=== PATIENT | male | born 1945 | race Caucasian/White ===

== ENCOUNTER 2018-09-11 15:28 | Outpatient (REF) | payer MEDICARE, OTHER, SELFPAY ==
[2018-09-13 10:31] LABS: PSA, Screening 0.3 ng/ml (0-6.5)
== END 2018-09-11 15:48 ==
LOC: NCHCN 15:28
PROVIDERS: PCP Family Medicine; Visit Provider Family Medicine
DX: N40.0 Benign prostatic hyperplasia without lower urinary tract symptoms (principal); Z12.5 Encounter for screening for malignant neoplasm of prostate
CPT/HCPCS: 84153

== ENCOUNTER 2020-08-26 09:01 | Outpatient (REF) | payer OTHER, SELFPAY ==
[2020-08-26 13:34] LABS: HCT 41.2 % (40.0-50.0); HGB 13.5 g/dL (13.5-17.5); MCH 30.7 pg (27.0-33.0); MCHC 32.8 % (32.0-36.0); MCV 93.6 fL (80-95); MPV 8.5 fL (8.0-11.0); Platelet Count 257 10^3/uL (130-400); RDW 12.8 % (11.8-14.1); RDW-SD 44.2 fL; WBC 5.36 10^3/uL (4.4-10.8)
[2020-08-26 13:56] LABS: ALT 20 U/L (16-63); AST 18 U/L (15-37); Albumin 3.9 g/dL (3.4-5.0); Alkaline Phosphatase 65 U/L (46-116); Anion Gap 8.1 mmol/L (3-11); BUN 23 mg/dL (7-18); Bilirubin, Total 0.6 mg/dL (0.2-1.0); CO2 27.9 mmol/L (21.0-32.0); CREATININE 0.9 mg/dL (0.70-1.30); Calculated LDL 109 mg/dL (<100); Chloride 103 mmol/L (98-107); Cholesterol 179 mg/dL (<200); Glucose 85 mg/dL (74-106); HDL Cholesterol 56 mg/dL (40-60); Potassium 4.8 mmol/L (3.5-5.1); Sodium 139 mmol/L (136-145); Total Protein 7.1 g/dL (6.4-8.2); Triglyceride 73 mg/dL (<150)
== END 2020-08-26 09:02 | disposition home or self-care (01) ==
LOC: NCHCN 09:01
PROVIDERS: PCP Family Medicine; Visit Provider Family Medicine
DX: E66.9 Obesity, unspecified (principal)
CPT/HCPCS: 80053; 80061; 85027

== ENCOUNTER 2021-06-14 09:02 | Outpatient (REF) | payer MEDICARE, SELFPAY ==
[2021-06-13 21:00] LABS: Abs Immature Grans 0.02 10^3/uL (0.0-0.06); Absolute Basophil Count 0.02 10^3/uL (0.0-0.2); Absolute Eosinophil Count 0.07 10^3/uL (0.0-0.7); Absolute Lymphocyte Count 1.88 10^3/uL (1.2-3.4); Absolute Neutrophil Count 3.94 10^3/uL (1.2-6.7); Basophils % 0.3; Eosinophils % 1.1; HCT 42.5 % (40.0-50.0); Immature Grans % 0.3; Lymphocytes % 29.2; MCH 30.1 pg (27.0-33.0); MCHC 32.9 % (32.0-36.0); MCV 91.4 fL (80-95); MPV 8.6 fL (8.0-11.0); Monocytes % 7.8; Neutrophils % 61.3; Nucleated RBC 0 %; Platelet Count 255 10^3/uL (130-400); RBC 4.65 10^6/uL (4.36-5.78); RDW 12.2 % (11.8-14.1); WBC 6.43 10^3/uL (4.4-10.8)
[2021-06-13 21:05] LABS: Amylase 41 U/L (25-115); Lipase 48 U/L (73-393)
== END 2021-06-14 09:03 | disposition home or self-care (01) ==
LOC: NCHCN 09:02
PROVIDERS: PCP Family Medicine; Visit Provider Family Medicine
DX: R10.13 Epigastric pain (principal)
CPT/HCPCS: 83690; 82150; 85025

== ENCOUNTER → 2022-09-07 09:35 | Outpatient (BNVA) | payer MEDICARE, SELFPAY | PROVIDERS: PCP Family Medicine; Referring Provider Family Medicine; Visit Provider Physical Therapy Assistant | DX: Z12.11 Encounter for screening for malignant neoplasm of colon (principal); Z86.010 Personal history of colon polyps; Z80.0 Family history of malignant neoplasm of digestive organs ==

== ENCOUNTER 2022-09-27 10:02 | Outpatient (REF) | payer MEDICARE, SELFPAY ==
[2022-09-27 14:57] LABS: HCT 42.5 % (40.0-50.0); HGB 13.8 g/dL (13.5-17.5); MCH 30.5 pg (27.0-33.0); MCHC 32.5 % (32.0-36.0); MCV 94 fL (80-95); MPV 8.4 fL (8.0-11.0); Platelet Count 288 10^3/uL (130-400); RBC 4.53 10^6/uL (4.36-5.78); RDW 12.9 % (11.8-14.1); RDW-SD 44.6 fL; WBC 6.19 10^3/uL (4.4-10.8)
[2022-09-27 15:59] LABS: ALT 19 U/L (16-63); AST 24 U/L (15-37); Albumin 4.1 g/dL (3.4-5.0); Alkaline Phosphatase 79 U/L (46-116); Anion Gap 8.3 mmol/L (3-11); BUN 27 mg/dL (7-18); Bilirubin, Total 0.6 mg/dL (0.2-1.0); CO2 28.7 mmol/L (21.0-32.0); Calcium 9.3 mg/dL (8.5-10.1); Calculated LDL 123 mg/dL (<100); Chloride 104 mmol/L (98-107); Cholesterol 196 mg/dL (<200); Estimated GFR 78.49 (mL/min/1.73m2); Glucose 102 mg/dL (74-106); HDL Cholesterol 61 mg/dL (40-60); Potassium 4.7 mmol/L (3.5-5.1); Sodium 141 mmol/L (136-145); Total Protein 7.4 g/dL (6.4-8.2); Triglyceride 61 mg/dL (<150)
[2022-09-27 16:00] LABS: Vitamin D 25 Total 44.1 ng/mL (30-100)
[2022-09-27 22:42] LABS: PSA, Screening 0.2 ng/mL (<=6.5)
== END 2022-09-27 10:03 | disposition home or self-care (01) ==
LOC: NCHCN 10:02
PROVIDERS: PCP Family Medicine; Visit Provider Family Medicine
DX: N40.0 Benign prostatic hyperplasia without lower urinary tract symptoms (principal); Z12.5 Encounter for screening for malignant neoplasm of prostate; E66.8 Other obesity
CPT/HCPCS: 80053; 80061; 82306; 84153; 85027

== ENCOUNTER 2022-10-03 08:42 | Day surgery (SDC) | payer MEDICARE, SELFPAY ==
[2022-10-03 10:19] VITALS: BP 138/73; PULSE 68; RESP 16; TEMP 36.2; O2SAT 97
[2022-10-03] MEDS: Lactated Ringers 1,000 ML 80 ML IV (10:33)
--- NOTE | 2022-10-03 10:45 | ANES.PREOP_ITS ---
General Info Date of Service Date Performed: 10/03/22 Height: 5 ft 9 in Weight: 90.6 kg Body Mass Index (BMI): 29.5 Surgical Procedure: Operation Date: 10/03/22 12:05 Proposed Procedure Side Surgeon p Miranda Johnson MD Meds Allergies and Home Medications Allergies Allergy/AdvReac Type Severity Reaction Status Date / Time No Known Allergies Allergy Unverified 10/03/22 10:12 Home Medication Medication Instructions Recorded multivitamin (Daily Multi-Vitamin 1 ea PO DAILY ##1 12/04/13 tablet) cholecalciferol (vitamin D3) 25 1,000 unit PO DAILY ##2 11/26/17 mcg (1,000 unit) tablet tramadol 50 mg tablet 50 mg PO PRN 11/26/17 fluticasone propionate 50 1 spray intranasal BID 03/17/21 mcg/actuation nasal spray,suspension tamsulosin 0.4 mg capsule (Flomax) 0.4 mg PO DAILY 03/17/21 zolpidem 10 mg tablet (Ambien) 10 mg PO PRN 03/25/21 bisacodyl 5 mg tablet,delayed 5 mg PO ONCE #4 tabs 09/07/22 release (Dulcolax (bisacodyl)) omeprazole 40 mg capsule,delayed 40 mg PO DAILY 09/07/22 release polyethylene glycol 3350 17 17 g PO ONCE #238 grams 09/07/22 gram/dose oral powder bisacodyl 5 mg tablet,delayed 5 mg PO ONCE colonscopy bowel prep 09/21/22 release (Dulcolax (bisacodyl)) #4 tabs polyethylene glycol 3350 17 238 g PO ONCE colonoscopy prep 09/21/22 gram/dose oral powder #238 grams Current Visit Medications: Current Medications Generic Name Dose Route Start Last Admin Trade Name Freq PRN Reason Stop Dose Admin Ringer's Solution 1,000 mls @ 80 mls/hr 10/03/22 06:00 10/03/22 10:33 IV 11/01/22 23:59 80 mls/hr INFUSION LEROY Administration IV Miscellaneous Supplies 1 each 10/03/22 06:00 Iv Access IV 11/01/22 23:59 DIRECTED LEROY Sodium Chloride 0 ml 10/03/22 06:00 Normal Saline Flush 10 Ml Syr IV 11/01/22 23:59 PRN PRN Sodium Chloride 0 ml 10/03/22 06:00 Normal Saline 10 Ml Vial IJ 11/01/22 23:59 DIRECTED PRN Sterile Water 0 ml 10/03/22 06:00 Water,Injection,Sterile 10 Ml Vial IJ 11/01/22 23:59 DIRECTED PRN PFSH Active Problems Active Problems: Problem Status Onset Code Sensorineural hearing loss (SNHL) of both ears H90.3 Left knee pain M25.562 Postnasal drip R09.82 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, N13.8 Dupuytren's contracture M72.0 Insomnia G47.00 Right shoulder pain M25.511 Obesity (BMI 30-39.9) E66.9 Situational depression Low back pain M54.5 Spinal stenosis M48.00 Tubulovillous adenoma of colon D12.6 Sleep apnea G47.30 Diverticulosis K57.90 Impacted cerumen, right ear H61.21 Conductive hearing loss, external ear H90.2 Screening for colon cancer Z12.11 Medical History Medical History Grief reaction Spinal stenosis of lumbar region Surgical History Surgical History History of back surgery 2 in 2013 History of colonoscopy History of hernia surgery Replacement of total knee joint (09/09/12) left side w/ revision Tobacco Smoking/Tobacco Use Status: Former Tobacco Use Alcohol Alcohol Intake: current Alcohol intake frequency: holidays/special occasions only Substance Use Substance use: Never Substance use type: does not use Vital Signs and Lab Results Vital Signs Most Recent Vital Signs in EMR: Most Recent Vital Signs Temp Pulse Resp BP Pulse Ox 36.2 C L 68 16 138/73 97 10/03/22 10:19 10/03/22 10:19 10/03/22 10:19 10/03/22 10:19 10/03/22 10:19 Lab Results Blood Type / Crossmatch: No Data to Display Complete Blood Count: White Blood Count 6.19 10^3/uL (4.4-10.8) 09/27/22 08:54 Red Blood Count 4.53 10^6/uL (4.36-5.78) 09/27/22 08:54 Hemoglobin 13.8 g/dL (13.5-17.5) 09/27/22 08:54 Hematocrit 42.5 % (40.0-50.0) 09/27/22 08:54 Platelet Count 288 10^3/uL (130-400) 09/27/22 08:54 Complete Metabolic Panel: Sodium 141 mmol/L (136-145) 09/27/22 08:54 Potassium 4.7 mmol/L (3.5-5.1) 09/27/22 08:54 Chloride 104 mmol/L (98-107) 09/27/22 08:54 Carbon Dioxide 28.7 mmol/L (21.0-32.0) 09/27/22 08:54 BUN 27 mg/dL (7-18) H 09/27/22 08:54 Creatinine 1.0 mg/dL (0.70-1.30) 09/27/22 08:54 Est GFR (CKD-EPI 2020) 78.49 (mL/min/1.73m2) 09/27/22 08:54 Calcium 9.3 mg/dL (8.5-10.1) 09/27/22 08:54 Albumin 4.1 g/dL (3.4-5.0) 09/27/22 08:54 Glucose 102 mg/dL (74-106) 09/27/22 08:54 Liver Function Panel: Alanine Aminotransferase (ALT/SGPT) 19 U/L (16-63) 09/27/22 08: 54 Aspartate Amino Transf (AST/SGOT) 24 U/L (15-37) 09/27/22 08:54 Coagulation Panel: No Data to Display Cardiac Panel: No Data to Display Arterial Blood Gas: No Data to Display Venous Blood Gas: No Data to Display Pancreas Panel: No Data to Display Thyroid Panel: No Data to Display Infectious Disease: No Data to Display Blood Cultures: No Data to Display Toxicology Panel: No Data to Display Anesthesia Assessment and Plan Anesthesia History Personal History: No History of Anesthesia Complications Family History: No Family History of Anesthesia Complications Exercise Tolerance Exercise Tolerance: Metabolic Equivalents<4 Pertinent Negatives Pertinent Negatives: No Symptoms of GERD (controlled with meds), No Major Cardiovascular Symptoms or Complaints, No Major Pulmonary Symptoms or Complaints (sleep apnea, CPAP) and No History of CVA/TIA Cardiac & Pulmonary Exam Cardiac Exam: Normal S1/S2 Heart Sounds Pulmonary Exam: Clear Bilateral Breath Sounds Implantable Cardiac Device Does patient have a Pacemaker or an ICD?: No Airway Exam Known Difficult Airway: No Mallampati Class: 3 Mouth Opening: Normal (> 3cm) Thyromental Distance: Greater than 3 cm Neck Range of Motion: Full ROM Neck Circumference: Normal Teeth Condition: Normal Dentition (some missing, none loose) ASA Classification ASA Score: ASA 3 Emergency Case?: No NPO Status NPO Status: NPO Clears >2 hours, Solids >8 hours Anesthesia Plan Resuscitation Status: Full Code Anesthesia Technique: General Anesthesia Airway Planned: Natural Airway Monitors Used: Standard Monitors
[2022-10-03 10:49] VITALS: BMI 29.5
--- NOTE | 2022-10-03 11:20 | W.COLOREPORT ---
Date of service: 10/03/22 Time of Service: 12:12 Colonoscopy Report Procedure Description: Procedures performed: 1. Colonoscopy with snare polypectomy x1 2. Ablation/fulguration/destruction of polyp Preoperative diagnosis: Surveillance colonoscopy Postoperative diagnosis: Colon polyps, mild sigmoid diverticulosis Surgeon: Kadi Johnson Anesthesia: Ely Indication for procedure: Patient is a 77-year-old man with a family history of colon cancer in his daughter. His last scope was more than 10 years ago. He has never had any findings that he recalls. Findings: Terminal ileum was normal. In the transverse colon a 5-7 mm sessile adenomatous?appearing polyp was removed with hot snare technique. In the sigmoid colon, a small 2-3 mm polyp was burned/ablated with the tip of the hot snare. Mild/moderate diverticular changes are present mostly in the sigmoid colon. Surveillance/follow-up recommendations: Because of the family history and finding the polyp today I recommend repeating another colonoscopy in 5 years(at 82 years old as long as a good life expectancy exist at that time). Complications: None Blood loss: Minimal Specimens:?? YES Quality of Prep:?? Good Procedure in detail: Written consent was obtained from the patient who was in agreement with the risks, benefits and indications of the procedure.? We went to the endoscopy suite and laid the patient in left lateral decubitus position.? Anesthesia was administered which was tolerated well.? A timeout was performed and when we are all in agreement we began the procedure. Digital rectal exam and visual examination was performed and within normal limits.? A well?lubricated colonoscope was advanced without difficulty all the way to the cecum identified by the ileocecal valve, and triangular folds and appendiceal orifice. The terminal ileum was intubated and appeared normal visually.? It was then slowly withdrawn.?? Retroflexion was performed in the rectum.? The findings/interventions are noted above. The scope was then removed and the patient tolerated the procedure well and was then taken back to the PACU in hemodynamically stable condition.
--- NOTE | 2022-10-03 11:58 | BOWEL_PTH ---
PATIENT: Frank Soriano LOC: [facility] U#:[id number] AGE/SX: 77/M ROOM: RE10/03/[address]: Justino Johnson : 1945 BED: DIS: 10/03/2022 SPEC #: [id number] RECD: 10/03/22 12:54 STATUS: ANALI REQ #: [id number] WILLI: 10/03/22 11:[address]: Justino Johnson DEPT: Surgical Specimen RECD BY: Jyothi Cheung ENTERED: 10/03/22 12:55 SP TYPE: Bowel OTHR DR: Kait Gagnon Tissues: 1 - BIOPSY BOWEL Procedures: GROSS AND MICRO LEVEL 4 Comments: [id number]
[2022-10-03 12:11] VITALS: BP 103/68; PULSE 59; RESP 16; TEMP 36.4; O2SAT 95
[2022-10-03 12:28] VITALS: BP 126/80; PULSE 54; RESP 16; TEMP 36.2; O2SAT 96
--- NOTE | 2022-10-03 13:10 | W.ANESPOSTOP ---
Postoperative Evaluation Date, Time and Location Date Performed: 10/03/22 Time Performed: 13:10 Patient Location: Day Surgery Unit Vital Signs Most Recent Imported Vital Signs: Most Recent Vital Signs Temp Pulse Resp BP Pulse Ox 36.2 C L 54 L 16 126/80 96 10/03/22 12:28 10/03/22 12:28 10/03/22 12:28 10/03/22 12:28 10/03/22 12:28 Pain Score Most Recent Pain Score: Most Recent Pain Score Pain Level 0 10/03/22 12:28 Assessment Mental Status: Awake (Alert & Oriented to Patient Baseline) Airway and Respiratory Function: Patent airway with normal (patient baseline) respiratory exam Cardiovascular Function: Hemodynamically Stable Hydration Status: Adequately Hydrated Nausea & Vomiting: No Nausea or Vomiting Pain: Pt. Denies Any Pain Peripheral Nerve Block: Patient did not receive a nerve block
== END 2022-10-03 13:15 | disposition home or self-care (01) ==
PROVIDERS: PCP Family Medicine; Visit Provider Student in an Organized Health Care Education/Training Program
PROC: 0DJD8ZZ Inspection of Lower Intestinal Tract, Via Natural or Artificial Opening Endoscopic (ICD-10-PCS; CPT 45378; principal; 2022-10-03 12:00)
DX: Z12.11 Encounter for screening for malignant neoplasm of colon (principal); Z80.0 Family history of malignant neoplasm of digestive organs; K63.5 Polyp of colon; K57.30 Diverticulosis of large intestine without perforation or abscess without bleeding
CPT/HCPCS: 45385; 88305

== ENCOUNTER → 2023-05-24 15:07 | Outpatient (CLI) | payer MEDICARE, SELFPAY ==
--- NOTE | 2023-05-24 | DI.RAD_ITS ---
Exam(s) XR CERVICAL SPINE COMP 4-5V EXAM: XR CERVICAL SPINE COMP 4-5V CLINICAL HISTORY: NECK PAIN M54.2 EVAL JOINT SPACE ABNORMALITY. TECHNIQUE: 2D digital imaging was performed. Six images were obtained. AP, odontoid, lateral and marc ateral oblique images were obtained. COMPARISON: No exams were available for comparison FINDINGS: The odontoid is intact. The lateral masses are well aligned. There is normal alignment of the cervi bel spine. There is disc space narrowing at C3-4, C5-6 and C6-C7. There also endplate osteophytes at these levels. No acute fracture or subluxation is present. Neural foraminal narrowing is seen on th e right at C3-4 and C5-C6 and on the left at C3-4 and C6-C7. The cervical thoracic junction is well m aintained. The prevertebral soft tissues are unremarkable. Lung apices are clear. IMPRESSION: Moderate degenerative changes in the cervical spine as described above. DATA REPOSITORY: RADIATION DOSE DELIVERED:
== END ==
PROVIDERS: PCP Family Medicine; Visit Provider Physician Assistant Medical
DX: M99.71 Connective tissue and disc stenosis of intervertebral foramina of cervical region (principal); M50.021 Cervical disc disorder at C4-C5 level with myelopathy; M50.022 Cervical disc disorder at C5-C6 level with myelopathy
CPT/HCPCS: 72050

== ENCOUNTER 2024-07-14 01:33 | Outpatient (CLI) | payer MEDICARE, SELFPAY ==
--- NOTE | 2024-07-14 | DI.MRI_ITS ---
Exam(s) MR LUMBAR SPINE WO EXAM: MR LUMBAR SPINE WO CLINICAL HISTORY: LBP, M54.50. TECHNIQUE: Multiplanar multisequence MRI of the Lumbar spine was performed. COMPARISON: MR MRI - LUMBAR SPINE WO CONTRAST from 11/28/2013 CR XR CERVICAL SPINE COMP 4-5V from 05/24/2023 FINDINGS: Bones: The last intervertebral disc space is designated the L5/S1 level for the numbering purpose of this ex amination. There is severe collapse of the central portion of the L4 vertebral body which appears unchanged. Th ere are prominent endplate osteophytes throughout. Alignment: Prominent levoscoliosis. Marrow signal: Fatty marrow replacement from L1 through L4. No suspicious signal abnormalities. Cord: The conus tip ends at the T12 level. It is of normal size and signal intensity. T12-L1: No focal disc herniation is present. Prominent facet degenerative changes. Mild bilateral n eural foraminal narrowing and mild central canal stenosis. L1-2:Severe loss of disc height eccentric toward the right. Prominent endplate osteophytes. No sign ificant central canal stenosis. Mild right neural foraminal narrowing. L2-3: Severe loss of disc height. Some bony fusion between the endplates. Prominent endplate osteo phytes. Severe right neural foraminal narrowing. L3-4: Loss of disc height eccentric toward the right. Prominent endplate osteophytes. Severe bilate ral neural foraminal narrowing. Moderate central canal stenosis. L4-5:Concentric disc bulging. Disc height is maintained. Severe facet degenerative changes causes s evere bilateral neural foraminal narrowing. Moderate central canal stenosis. L5-S1: Loss of disc height eccentric toward the left. Prominent endplate osteophytes. Facet degener ative changes. Severe bilateral neural foraminal narrowing. The visualized SI joints and sacrum are unremarkable. Soft tissues: The paraspinal soft tissues are unremarkable. IMPRESSION: Stable L4 compression fracture. Severe degenerative disc changes and facet degenerative changes causing severe multilevel neural fora kobe narrowing and scoliosis. Moderate central canal stenosis at L3-4 and L4-5. DATA REPOSITORY:
== END 2024-07-14 01:53 ==
LOC: DI 01:33
PROVIDERS: PCP Family Medicine; Visit Provider Family Medicine
DX: M48.062 Spinal stenosis, lumbar region with neurogenic claudication (principal)
CPT/HCPCS: 72148